=== PATIENT | male | born 1965 | race Caucasian/White ===

== ENCOUNTER 2021-08-22 14:13 | Inpatient (IN) | payer MEDICARE, OTHER ==
[~2021-08-22] VITALS: Ht 190.5 cm; Wt 120.3 kg
--- NOTE | 2021-08-22 14:27 | NUR ---
DENIES ANY SI THOUGHTS OR ACTIONS
--- NOTE | 2021-08-22 14:43 | NUR ---
1354 TO FLOOR WITH [facility]
--- NOTE | 2021-08-22 14:48 | NUR ---
REPORT FOR PATIENT FROM TIM GALAVIZ AT [place] [id number] [address], SYMPTOMATIC, PATIENT ALERT AND ORIENTED, SLOW TO ANSWER QUESTIONS OR RESPOND
--- NOTE | 2021-08-22 14:49 | NUR ---
DR SANTIAGO IN SEEING PATIENT NOW
--- NOTE | 2021-08-22 15:11 | NUR ---
[facility] AC, ONE FROM EMS, OTHER FROM HOSPITAL IN [facility]
--- NOTE | 2021-08-22 15:25 | NUR ---
ECHO AT BEDSIDE NOW
[2021-08-22] MEDS ORDERED: Rephresh8 GM PO (15:40)
[2021-08-22] MEDS ORDERED: VITAMIN D5000 UNIT PO (15:42)
[2021-08-22] MEDS ORDERED: MULVITA PO (15:43)
[2021-08-22] MEDS ORDERED: LEVE500 PO (15:44)
[2021-08-22] MEDS ORDERED: ACET325 PO (15:44)
[2021-08-22] MEDS ORDERED: OLAN2.5 PO (15:45)
[2021-08-22] MEDS ORDERED: OYSTER SHELL 51 EAC4 PO (15:46)
--- NOTE | 2021-08-22 15:54 | NUR ---
Echocardiogram completed.
[2021-08-22 16:09] LABS: International Normalized Ratio 1.06; Prothrombin Time Results 11.1 Sec (9.7-11.5)
[2021-08-22 16:19] LABS: Magnesium, Blood 2.2 mg/dL (1.6-2.4)
[2021-08-22 16:21] LABS: Thyroid Stimulating Hormone 3.7 uIU/mL (0.360-4.800)
--- NOTE | 2021-08-22 17:40 | NUR ---
1723 UPDATED DARIO WITH [facility] 1724 UPDATED SISTER IN LAW WITH PATIENTS PERMISSION [address] SANTIAGO PATIENT TRANSFERRED TO THE [facility] WITH EASE, MAKES NEEDS KNOWN, WATCHING TV
--- NOTE | 2021-08-22 18:26 | NUR ---
ADMITTED TODAY FROM [facility] FOR A PACER PLACEMENT IN THE AM. ALERT AND OREINTED X4, SLOW TO RESPOND, DEVELOPMENTAL DELAYED, HIGH FUNCTIONING. LS DIM BASES MORE WORSE IN THE LEFT BASE, SATS 98% ON RA. NSR/BRADYCARDIA, DR CASEY CONSULTED, TO HAVE PACER PLACED IN AM, EPINEPNRINE INFUSING AT 0.5 MCG. NPO AT MIDNIGHT, ECHO DONE, -COVID RESULTS FROM [facility] IN CHART. WILL RELAY TO PM RN, WCTM
--- NOTE | 2021-08-22 19:30 | NUR ---
ASSESSMENT/ASSUMED CARE PT SITTING UP IN BED WATCHING TV. REORIENTED TO PLACE. PT DELEV. DELAYED. FOLLOWING INSTRUCTIONS AND ANSWERING QUESTIONS. DENIES PAIN. LUNGS CLEAR ON ROOMAIR. RESP EVEN AND NONLABORED. DENIES SOB OR COUGH. HEART RATE REGULAR. BP STABLE. EPI GTT DECREASED TO 0.25 MCQ/MIN DUE TO HEART RATE IN THE 90'S AND BP STABLE. WILL TRY TO WEAN EPI GTT. BT+ ABD SOFT AND NONTENDER. DENIES N/V. PT NPO AFTER MIDNIGHT FOR PACEMAKER PLACEMENT TOMORROW. IV 18G TO RIGHT AC WITH NS AT 200 ML/HR AND EPI GTT, SITE CLEAR. IV 18G TO LEFT AC SALINE LOCKED, SITE CLEAR. SCD'S APPLIED. PT MOVING SELF AROUND IN BED
--- NOTE | 2021-08-22 19:39 | NUR ---
CALL FROM MD DR MARTINEZ CALLED. UPDATE GIVEN. EPI CURRENTLY AT 0.25 MCQ/MIN. STOP EPI IN 15 MIN, MAY RESTART TO KEEP HEART RATE GREATER THAN 50 AND MAP GREATER THAN 65. PT NPO AFTER MIDNIGHT FOR PACEMAKER PLACEMENT TOMORROR 08/23/21 IN AFTERNOON.
--- NOTE | 2021-08-23 06:06 | NUR ---
SHIFT SUMMARY PT RESTING QUIELTY. TURNING AND MOVING SELF IN BED. USING CALL LIGHT APPROP. DENIES PAIN OR DISCOMFORT. HEART RATE 80-90'S, BP STABLE. EPI GTT OFF SINCE 1999. PT NPO SINCE MIDNIGHT FOR PACEMAKER PLACEMENT TODAY. PT VOIDING VIA URINAL, CLEAR YELLOW URINE. LUNGS CLEAR ON ROOMAIR. RESP EVEN AND NONLABORED. SCD'S ON. REPORT TO ON COMING NURSE
[2021-08-23 07:06] LABS: BASOPHILS ABSOLUTE AUTO 0.02 K/mm3 (0.00-0.23); BASOPHILS PERCENT AUTO 0 % (0-2); EOSINOPHILS ABSOLUTE AUTO 0.01 K/mm3 (0.00-0.68); EOSINOPHILS PERCENT AUTO 0 % (0-6); Hematocrit 41.2 % (37.0-53.0); IMMATURE GRAN ABSOLUTE AUTO 0.03 K/mm3 (0.00-0.10); IMMATURE GRAN PERCENT AUTO 0 % (0-1); LYMPHOCYTES ABSOLUTE AUTO 1.34 K/mm3 (0.84-5.20); LYMPHOCYTES PERCENT AUTO 11 % (21-46); MONOCYTES ABSOLUTE AUTO 1.59 K/mm3 (0.16-1.47); MONOCYTES PERCENT AUTO 14 % (4-13); Mean Corpuscular HGB 30.4 pg (26.0-34.0); Mean Corpuscular Volume 89 fL (80-100); Mean Platelet Volume 11.5 fL (9.1-12.4); NEUTROPHILS ABSOLUTE AUTO 8.81 K/mm3 (1.96-9.15); NEUTROPHILS PERCENT AUTO 75 % (41-73); Platelet Count 96 K/mm3 (150-400); RDW Coefficient Variation 13.4 % (11.7-14.2); RDW Standard Deviation 44.1 fL (35.1-46.3); Red Blood Cell Count 4.61 M/mm3 (4.30-5.90)
[2021-08-23 07:29] LABS: Anion Gap 6 mmol/L (6-16); Blood Urea Nitrogen 14 mg/dL (8-24); CO2, Blood 24 mmol/L (21-32); Calcium, Blood 8.6 mg/dL (8.5-10.1); Chloride, Blood 114 mmol/L (98-108); Creatinine, Blood 1.08 mg/dL (0.60-1.20); Glomerular Filtration Rate >60 (60-); Glucose, Blood 117 mg/dL (70-99); Potassium, Blood 4.4 mmol/L (3.5-5.5); Sodium, Blood 144 mmol/L (136-145)
--- NOTE | 2021-08-23 07:32 | NUR ---
Received report from Anita GALAVIZ. Patient lying in bed awake when entering room. Patient alert and oriented is miriam ramírez to communicate his needs, understands about procedure but not sure where he is at. He has some developmental delays. He has bilateral 18ga IV in AC and right AC infusing NS at 100ml/hr. he usues urinal appropriately. Dr Lee by to check on patient. HR 80-90's SR. Sats 96% on RA.
--- NOTE | 2021-08-23 09:27 | NUR ---
Patient continues as am note and resting awaiting for pacer placement at noon.
--- NOTE | 2021-08-23 10:25 | NUR ---
Responding to Pt. Spiritual Care referral. Pt, was alert and pleasant. Welcomed my visit. Pt. has dev. disabilities per medical review. Pt. demonstrated some unsettledness about being alone. Verbalized no spiritual background. Pt. also communicated about his need for a heart monitor. The possibility of this procedure did not copncern him. Prayed with pt. and agreed to check on him. Pt. verbalized gratitude, and openness to a further visit.
--- NOTE | 2021-08-23 11:52 | NUR ---
Patient had unwitness seizure at 1040, and went in room sats were 60% and climbing, mouth clinched down and placed NPA and NT suctioned after bagged for a few minutes. He was incontinewnt during seizure and gave bath and changed linen. Dr Howell ordered Keppra as was not on inpatient med list and he takes at home. He just started to awaken to verbal stimuli, but is still really out of it and only nodding to questions. Called and let Dr Hernandez know about event, VSS. Talked to Dr Hernandez and is restarting home meds.
--- NOTE | 2021-08-23 13:00 | NUR ---
Patient off to manufacturing lab technician for pacer. VSS. Patient awake and oriented at time of departure.
--- NOTE | 2021-08-23 15:41 | NUR ---
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 Left pacer site C/D/I with gauze and clear opsite. VSS. Restarted NS at 100 ml/hr.
--- NOTE | 2021-08-23 17:36 | NUR ---
Spoke with his case management specialist and habitat conservation planner for them to communicate together for discharge possibly tomorrow home. Left upper chest pacer site C/D/I and no signs of bleeding or swelling. VSS. He continues with NS at 100ml/hr.
--- NOTE | 2021-08-23 19:26 | NUR ---
ASSUMED CARE AT 1900 PATIENT IS ALERT AND ORIENTED X4, SLOW TO RESPOND (HX DEVELOPMENTAL DELAY), FOLLOWS COMMANDS AND IS COOPERATIVE WITH CARE. 02 SATS >95% ON RA, LUNGS SOUND CLEAR. HR SR @90s. BP HYPERTENSIVE, PT STATES HE IS IN PAIN, WILL MEDICATE PER EMAR. PACEMAKER SITE C/D/I, PATIENT COOPERATIVE WITH NOT USING LUE. USES URINAL. SEE SHIFT ASSESSMENT FOR MORE DETAIL.
--- NOTE | 2021-08-24 06:00 | NUR ---
SHIFT SUMMARY PATIENT REMAINS ALERT AND ORIENTED X4, SLOW TO RESPONDS. 02 SATS >93% ON RA. LUNGS CLEAR. HR SR WITH PVCs @70s. BP STABLE. LEFT CHEST DRESSING C/D/I. PATIENT USES URINAL. PATIENT ABLE TO REPSOITION SELF IN BED, HELP WITH REPOSITIONING WHEN REQUESTED. PATIENT USES CALL LIGHT APPROPRIATELY. MEDICATED ONCE FOR LEFT SHOULDER DISCOMFORT, PATIENT DENIED PAIN OTHERWISE AND SLEPT MOST THE NIGHT. CALL LIGHT IN REACH.
--- NOTE | 2021-08-24 07:06 | NUR ---
Receieved report from Sofía GALAVIZ, Patient sleeping at time of report and awakens easily ot verbal stimuli. His Pacer site C/D/I and dressing WNL's. He has bilateral 18ga IV in AC's and rAC is infusing NS at 100ml/hr. He has bilateral SCD to LE's. He uses urinal appropriately and is at bedside. He repositions self for comfort. He should be discharged home and have spoke with his major case detective and our discharge team to get him prepared. He has fluids at bedside.
--- NOTE | 2021-08-24 09:36 | NUR ---
Dr Hernandez by and is discharging home, heart center has been by and interrogated pacer. He ate 100% of breakfast and tolerated liquids. He states left arm sore but doing OK. urinal output 1200 cc. He reamins on RA anmd sats 95%.
--- NOTE | 2021-08-24 12:22 | NUR ---
Patient sitting up in bed, VSS, Spoke with case planner and travel cannot come until tomorrow and contacting family if want to last picker today. Tolerated lunch well. Uses urinal appropriately.
--- NOTE | 2021-08-24 13:30 | NUR ---
Patients had xrays done per Dr Elias. He is med no tele per Dr Hernandez. Usaes urinal appropriately. They were not able to picker today and will be transported home tomorrow at 0900. VSS
--- NOTE | 2021-08-24 18:34 | NUR ---
No significant changes with patient. He is SL bilateral 18ga IV's. Uses urinal appropriately. Changed to [facility] [employer] diet. Transportation called and will be [phone] to continuous pickling line pickler and take home.
--- NOTE | 2021-08-24 20:33 | NUR ---
ASSUMED CARE AT 1900 PATIENT IS ALERT AND ORIENTED, SLOW TO RESPOND DUE TO DEVELOPMENTAL DELAY, NO OTHER DEFICITS. 02 SATS >93% ON RA, LUNGS CLEAR, DENIES SOB. HR 90s, MED NO TELE STATUS. BP STABLE. USES URINAL. PATIENT SITTING UP EATING DINNER AT START OF SHIFT. SURGICAL DRESSING C/D/I. PATIENT ABLE TO REPOSITION SELF IN BED. CALL LIGHT IN REACH.
--- NOTE | 2021-08-25 05:18 | NUR ---
SHIFT SUMMARY PATIENT REMAINS ALERT AND ORIENTED. 02 SATS >95% ON RA. BP STABLE. PATIENT SLEPT MOST THE NIGHT. DENIES ANY PAIN. REPOSITIONS INDEPENDENTLY IN BED. USES THE URINAL. CALL LIGHT IN REACH.
--- NOTE | 2021-08-25 09:20 | NUR ---
PT A/O X4. DELAYED RESPONSES AT BASELINE. PACER SITE TO L CHEST C/D/I. PT DISCHARGED. RIDE HOME WAITING IN FRONT OF ER. ESCORTED OUT WITH W/C. NO SIGN OF DISTRESS.
== END 2021-08-25 09:20 | disposition home or self-care (01) | DRG 244 ==
LOC: ICUW 14:13
PROVIDERS: Internal Medicine Cardiovascular Disease; ADMIT Internal Medicine
PROC: 3E033XZ Introduction of Vasopressor into Peripheral Vein, Percutaneous Approach (ICD-10-PCS; principal; 2021-08-22)
PROC: 0JH606Z Insertion of Pacemaker, Dual Chamber into Chest Subcutaneous Tissue and Fascia, Open Approach (ICD-10-PCS; 2021-08-23)
PROC: 02HK3JZ Insertion of Pacemaker Lead into Right Ventricle, Percutaneous Approach (ICD-10-PCS; 2021-08-23)
PROC: 02H63JZ Insertion of Pacemaker Lead into Right Atrium, Percutaneous Approach (ICD-10-PCS; 2021-08-23)
DX: I49.5 Sick sinus syndrome (principal); F89 Unspecified disorder of psychological development; G40.909 Epilepsy, unspecified, not intractable, without status epilepticus; E55.9 Vitamin D deficiency, unspecified; I95.9 Hypotension, unspecified; G25.81 Restless legs syndrome; F32.A Depression, unspecified; F29 Unspecified psychosis not due to a substance or known physiological condition; Z88.8 Allergy status to other drugs, medicaments and biological substances; Z79.899 Other long term (current) drug therapy
CPT/HCPCS: 33208; 36415; 71046; 80048; 82947; 83735; 84443; 85025; 85610; 86850; 86900; 86901; 93306; 99152; 99153; A9270; C1769; C1785; C1898; J0171; J0690; J1580; J1644; J1953; J2060; J2250; J3010; J7030; J7040; J7060; Q9967